=== PATIENT | female | born 1975 | race Caucasian/White ===

== ENCOUNTER → 2017-02-22 | Outpatient (REF) | LOC: WSOH 10:18 | DX: Z01.89 Encounter for other specified special examinations (principal) ==

== ENCOUNTER → 2018-05-06 | Outpatient (CLI) | payer BC | LOC: COL.LAB 13:29 | DX: R10.2 Pelvic and perineal pain (principal) ==

== ENCOUNTER → 2020-05-31 | Outpatient (CLI) | payer BC | LOC: MC.RAD 05-22 10:00 | DX: Z12.31 Encounter for screening mammogram for malignant neoplasm of breast (principal) ==

== ENCOUNTER 2021-02-18 07:09 | Day surgery (SDC) | payer BC ==
[~2021-02-18] VITALS: Ht 151.1 cm; Wt 74.9 kg
[2021-02-18] MEDS ORDERED: SINGULAIR 110 MG/TAB PO (08:24)
[2021-02-18] MEDS ORDERED: LIPITOR20 MG PO (08:25)
[2021-02-18] MEDS ORDERED: HCTZ 25MG TAB25 MG PO (08:25)
[2021-02-18] MEDS ORDERED: ATIVAN 1MG T1 MG/TAB PO (08:25)
[2021-02-18] MEDS ORDERED: LEVAQUIN 750MG750 M1 PO (08:26)
[2021-02-18] MEDS ORDERED: ONE-A-DAY ESSE1 EACH PO (08:26)
[2021-02-18 08:27] VITALS: BP 162/92; PULSE 87; TEMP 98.5
--- NOTE | 2021-02-18 08:43 | NUR ---
TO RM AT 0750- CALL LIGHT IN REACH WILL CALL FOR RIDE HOME
[2021-02-18] MEDS ORDERED: MOTRIN 600600 MG/TAB PO (11:38)
[2021-02-18] MEDS ORDERED: NORCO 325 MG-51 TAB PO (11:38)
[2021-02-18 11:40] VITALS: BP 119/64; PULSE 72; TEMP 97.7
--- NOTE | 2021-02-18 11:40 | NUR ---
TO RM 5 PER CART FROM PACU. ALERT ORIENTED X3, TALKING TO STAFF. RECEIVED PEPSI AND REFUSED ANYTHING TO EAT. DENIES NAUSEA C/O SLIGHT PAIN, BUT DENIES NEEDING PAIN MEDICATION. INCISION CLEAN DRY AND INTACT WITH SKIN ADHESIVE.
[2021-02-18 11:55] VITALS: BP 125/65; PULSE 81
--- NOTE | 2021-02-18 11:55 | NUR ---
DRANK PEPSI 100% AND AKING TO GO HOME.
--- NOTE | 2021-02-18 12:10 | NUR ---
TO BATHROOM AND VOIDED. AMBULATED BACK TO AND GOT DRESSED.
--- NOTE | 2021-02-18 12:35 | NUR ---
PATIENT STATED SHE COULDN'T BELIEVE HOW WELL SHE FEELS. RECEIVED DISCHARGE INSTRUCTIONS AND VERBALIZED UNDERSTANDING. DISCONTINUED INT.
--- NOTE | 2021-02-18 12:45 | NUR ---
DISCHARGED PER WC BY NURSING STAFF TO PRIVATE CAR IN CARE OF . PATIENT STEPPED UP INTO HEALTHCARE SCIENCE SPECIALIST TRUCK WITHOUT ANY HELP .
[2021-02-18 13:22] VITALS: BP 119/64; PULSE 76; TEMP 98.2
== END 2021-02-18 12:56 | disposition home or self-care (01) ==
LOC: SDCO 07:09
DX: L73.2 Hidradenitis suppurativa (principal); I10 Essential (primary) hypertension; G43.909 Migraine, unspecified, not intractable, without status migrainosus; F41.9 Anxiety disorder, unspecified; Z79.899 Other long term (current) drug therapy; E78.00 Pure hypercholesterolemia, unspecified; Z87.891 Personal history of nicotine dependence; Z90.89 Acquired absence of other organs; Z80.1 Family history of malignant neoplasm of trachea, bronchus and lung; Z80.52 Family history of malignant neoplasm of bladder; Z82.3 Family history of stroke; Z80.8 Family history of malignant neoplasm of other organs or systems
CPT/HCPCS: J2250; J2704; J3010; J7120

== ENCOUNTER 2022-06-19 06:52 | Day surgery (SDC) | payer BC ==
[~2022-06-19] VITALS: Ht 149.9 cm; Wt 73.5 kg
[~2022-06-19 06:52] MED LIST: ATIVAN 1MG T1 MG/TAB PO; HCTZ 25MG TAB25 MG PO; LEVAQUIN 750MG750 M1 PO; LIPITOR20 MG PO; MOTRIN 600600 MG/TAB PO; NORCO 325 MG-51 TAB PO; ONE-A-DAY ESSE1 EACH PO; SINGULAIR 110 MG/TAB PO
[2022-06-19 08:00] VITALS: BP 149/93; PULSE 82; TEMP 97.1
[2022-06-19 09:15] VITALS: BP 139/72; PULSE 78
[2022-06-19 09:30] VITALS: BP 150/91; PULSE 83
[2022-06-19 09:45] VITALS: BP 141/87; PULSE 68
[2022-06-19 10:00] VITALS: BP 159/84; PULSE 75
--- NOTE | 2022-06-19 10:25 | NUR ---
0915 Pt returns from endo procedure via cart and RN assist to [facility] [place] [facility]. Pt ambulates from cart to recliner with RN assist. Monitors on and alarms set. Call light within reach. Report received from FELICITAS Stern. Pt alert and oriented. Pt requests water. Pt denies any pain or nausea. 0925 Pt taking drink well. No complications noted. 1020 Discharge instructions given to pt. All questions answered to her satisfaction. Handed to pt are a thank you card and discharge information. 1025 Pt transferred out of the hospital via wheelchair and [place] assist, to private vehicle driven by pt's .
[2022-06-19 14:16] VITALS: BP 135/79; PULSE 82
== END 2022-06-19 10:25 | disposition home or self-care (01) ==
LOC: SDCO 06:52
DX: Z12.11 Encounter for screening for malignant neoplasm of colon (principal); K64.4 Residual hemorrhoidal skin tags; K63.89 Other specified diseases of intestine; K63.5 Polyp of colon; K51.40 Inflammatory polyps of colon without complications; K63.3 Ulcer of intestine; F17.210 Nicotine dependence, cigarettes, uncomplicated
CPT/HCPCS: J2704; J7120

== ENCOUNTER 2022-07-17 13:10 | Inpatient (IN) | payer BC ==
[~2022-07-17] VITALS: Ht 152.4 cm; Wt 73.0 kg
[2022-07-17 13:36] VITALS: BP 153/87; PULSE 90; TEMP 98.3
[2022-07-17] MEDS ORDERED: MOTRIN 600600 MG/TAB PO (15:43)
[2022-07-17] MEDS ORDERED: PERCOCET 325 MG1 TA2 PO ×2 (15:43)
[2022-07-17 20:15] VITALS: BP 144/70; PULSE 96
[2022-07-17 22:00] VITALS: BP 131/71; PULSE 79
--- NOTE | 2022-07-17 22:00 | NUR ---
Patient arrived to the floor at 2009 per stretcher with the PACU nurse, MACK MARTIN, with 5 lap sites with glue closure, head to to assessment done, tolerated her clear liquid diet, pain score of 6/10 oxycodone and tylenol given, will continue to monitor.
[2022-07-17 23:00] VITALS: BP 132/66; PULSE 83
[2022-07-18] VITALS (7 sets, daily range): BP systolic 121–159; BP diastolic 64–87; PULSE 63–77; TEMP 97.8–98.6
--- NOTE | 2022-07-18 06:40 | NUR ---
Report received, assumed care for day shift. Patient very tearful this AM stating she hasnt slept all night and just needs to sleep. Requested not to be bothered for a little while. This nurse requested that PCT postpone VS until late morning. Assessment was completed. Lap sites x5-edges well approximated-surgical glue closure. No s/s of infection noted. Tolerated a clear liquid diet last night. Left FA INT without signs of infiltration. SCDs not on as patient is independent in the room. Denies current needs except rest. Will continue to monitor.
[2022-07-18 10:08] LABS: HEMATOCRIT 40.9 % (37.0-47.0); HEMOGLOBIN 14.1 g/dl (12.5-16.0); MEAN CELL VOLUME 94 fl (80.0-100.0); MEAN CORPUSCULAR HEMOGLOBIN 32 pg (27-31); MEAN CORPUSCULAR HGB CONC 35 g/dl (33.0-37.0); MEAN PLATELET VOLUME 8.8 fl (7.4-10.4); PLATELET COUNT 257 K/mm3 (130-400); RED BLOOD COUNT 4.35 M/mm3 (4.10-5.30); REDCELL DISTRIBUTION WIDTH-CV 11.9 % (11.5-14.5)
--- NOTE | 2022-07-18 10:18 | NUR ---
SW met with patient to complete intake. Patient states that she lives [facility] with her Richard Ramey [phone]. She does not use DME, independent with ADL's, and does not utilize HH services at this time. PCP is Dr. Mcgowan in [facility] pharmacy is [facility]. Patient states that she does not have anyone appointed as DPOA/HC and does not want to appoint anyone specific at this time. Patient plans to return to her home upon DC. SW will continue to follow. DC plan: Home
--- NOTE | 2022-07-18 10:20 | NUR ---
Critical WBC count called to Dr Ford at this time.
[2022-07-18 10:27] LABS: ALBUMIN 3.6 gm/dL (3.5-5.0); BILIRUBIN,TOTAL 0.7 mg/dL (0.2-1.2); CALCIUM 9.4 mg/dL (8.4-10.2); CREATININE, serum 0.65 mg/dL (0.57-1.11); MAGNESIUM 1.6 mg/dL (1.6-2.6); PHOSPHOROUS 3.4 mg/dL (2.3-4.7); POTASSIUM 3.7 mmol/L (3.5-4.5); TOTAL PROTEIN 6.9 gm/dL (6.2-8.1)
[2022-07-18 10:51] LABS: LYMPHOCYTE 5 % (20.0-51.0); NEUTROPHILS 90 % (42.0-75.2); PLATELET ESTIMATE NORMAL (NORMAL)
--- NOTE | 2022-07-18 12:55 | NUR ---
Office Assistance offered prayer and support with patient while family was in room.
--- NOTE | 2022-07-18 13:00 | NUR ---
Patient up to ambulate in the halls. Tolerated well.
--- NOTE | 2022-07-18 15:58 | NUR ---
Up to ambulate in halls with family. Tolerated well.
--- NOTE | 2022-07-18 23:18 | NUR ---
Patient A/Ox4, VSS, NAD, reports pain at 5/10, schedule pain meds given, ambulated down the hallway by herself and tolerated it, able to voice needs, head to toe assessment, call light and personal items within reach.
--- NOTE | 2022-07-19 00:30 | NUR ---
Report received of elevated blood pressure 180s/90s. Taken at this time by this nurse with manual cuff-150s/60s. Patient states she had been talking about work with her coworker and got "worked up"
[2022-07-19 04:03] VITALS: BP 165/79; PULSE 70; TEMP 98.2
--- NOTE | 2022-07-19 06:33 | NUR ---
Patient ambulated the hallway and tolerated well, did sleep most of the night, denies the need for pain medicine at this time.
[2022-07-19 06:37] LABS: BASO % 0.2 % (0.0-2.0); EOS % 0.2 % (0.0-4.0); GRAN # 12.2 K/mm3 (1.4-6.5); GRAN % 73.9 % (42.2-75.2); HEMOGLOBIN 12.5 g/dl (12.5-16.0); LYMPH # 3.5 K/mm3 (1.2-3.4); LYMPH % 21.1 % (20.0-51.0); MEAN CELL VOLUME 96 fl (80.0-100.0); MEAN CORPUSCULAR HEMOGLOBIN 33 pg (27-31); MEAN CORPUSCULAR HGB CONC 34 g/dl (33.0-37.0); MONO # 0.7 K/mm3 (0.1-0.6); MONO % 4.1 % (1.7-9.3); PLATELET COUNT 236 K/mm3 (130-400); RED BLOOD COUNT 3.83 M/mm3 (4.10-5.30); REDCELL DISTRIBUTION WIDTH-CV 12.3 % (11.5-14.5)
[2022-07-19 06:43] LABS: HEMATOCRIT 36.9 % (37.0-47.0)
[2022-07-19 06:57] LABS: ALBUMIN 3.4 gm/dL (3.5-5.0); BILIRUBIN,TOTAL 0.7 mg/dL (0.2-1.2); CALCIUM 9.1 mg/dL (8.4-10.2); CREATININE, serum 0.64 mg/dL (0.57-1.11); POTASSIUM 3.6 mmol/L (3.5-4.5); TOTAL PROTEIN 6.5 gm/dL (6.2-8.1)
[2022-07-19 07:51] VITALS: BP 166/95; PULSE 76; TEMP 98.5
--- NOTE | 2022-07-19 08:11 | NUR ---
Up to ambulate in hallways
[2022-07-19 12:00] VITALS: BP 189/92; PULSE 74; TEMP 97.6
[2022-07-19 12:30] VITALS: BP 154/68
[2022-07-19 16:00] VITALS: BP 129/64; PULSE 78; TEMP 98
--- NOTE | 2022-07-19 17:53 | NUR ---
Patient had a good day. Ambulated in the hallway several times today. +flatus/+BM today. Received dilaudid x2 for pain and ativan x1 for anxiety. Tolerated diet. Denies current needs. [facility]. Will monitor.
[2022-07-19 20:00] VITALS: BP 135/93; PULSE 88; TEMP 98.7
[2022-07-20] VITALS (8 sets, daily range): BP systolic 126–143; BP diastolic 64–82; PULSE 84–118; TEMP 97.5–99.8
[2022-07-20 06:53] LABS: BASO % 0.2 % (0.0-2.0); EOS # 0.1 K/mm3 (0.0-0.7); EOS % 0.9 % (0.0-4.0); GRAN # 9.4 K/mm3 (1.4-6.5); GRAN % 78.1 % (42.2-75.2); HEMATOCRIT 37.4 % (37.0-47.0); HEMOGLOBIN 12.9 g/dl (12.5-16.0); LYMPH # 1.9 K/mm3 (1.2-3.4); MEAN CELL VOLUME 94 fl (80.0-100.0); MEAN CORPUSCULAR HEMOGLOBIN 33 pg (27-31); MEAN CORPUSCULAR HGB CONC 35 g/dl (33.0-37.0); MONO # 0.5 K/mm3 (0.1-0.6); MONO % 4.2 % (1.7-9.3); PLATELET COUNT 237 K/mm3 (130-400); RED BLOOD COUNT 3.96 M/mm3 (4.10-5.30); REDCELL DISTRIBUTION WIDTH-CV 12.2 % (11.5-14.5)
[2022-07-20 07:04] LABS: ALBUMIN 3.1 gm/dL (3.5-5.0); BILIRUBIN,TOTAL 1.3 mg/dL (0.2-1.2); CALCIUM 9.1 mg/dL (8.4-10.2); CREATININE, serum 0.62 mg/dL (0.57-1.11); POTASSIUM 3.5 mmol/L (3.5-4.5); TOTAL PROTEIN 6.4 gm/dL (6.2-8.1)
--- NOTE | 2022-07-20 09:06 | NUR ---
Pt doing well this morning. She has been up walking multiple times. Pt did have a little breakfast, but reported that she had diarrhea right after a couple bites. Pt does have complaints of feeling bloated, abd is distended. Pt educated on her advancing diet, but to take it slow and not to stuff herself. Pt verbalizes understanding.
--- NOTE | 2022-07-20 09:18 | NUR ---
Follow-up visit; Patient teary but thankful she is recouperating from some extensive surgery and Supervisor Residential was offering God's blessings and a thorough and rapid recovery. Supervisor Residential offered prayer and already has Marcy in her prayers.
--- NOTE | 2022-07-20 12:45 | NUR ---
Pt up walking again. Dr Ford ordered IV fluids. Went in to flush IV and pt complained of pain at the IV site. Pt stated that it has been bothering her for the past day. Pt really not wanting another IV. Notified Dr Ford, holding IV fluids for now
--- NOTE | 2022-07-20 16:30 | NUR ---
Pt had feeling like she might have had a fever, temp during vital signs was upper 99. Rechecked at this time, temp 98.1. Pt stated that she does feel better and did have covers on which she took off. No other needs at this time. Pt reported that she isn't very hungry. Educated her to not push foods
--- NOTE | 2022-07-20 18:00 | NUR ---
Pt recently started having increase feeling of nausea, more bloated, having issues with acid reflux. Pt stated that she feels like she is burping up the potatoes that she ate. Pt also continues to have liquid stool. New IV started in her left mid arm, PRN zofran given and fluids started. Educated her to slow down on eating for right now. Pt continues to get up and walk frequently. Updated Dr Drummond.
--- NOTE | 2022-07-20 19:49 | NUR ---
184 BSSR REPORT RECEIVED FROM ELIU POLK. PT RESTING IN BED NO NEW REQUESTS AT THIS TIME. 192 PT REQUESTING IV BENADRYL FOR ITCHING. 1930 RN AT BEDSIDE, HS MEDICATIONS ADMINISTERED, ASSESSMENT COMPLETE AT THIS TIME. PT IS ALERT AND ORIENTED X4, SPEECH IS CLEAR, HEART SOUNDS REGULAR PTS RASH IS LOCATED ON ARMS, NECK, BACK AND TORSO. LUNG SOUNDS CLEAR TO AUSCULTATION, ABD DRESSING IS CLEAN DRY AND INTACT, IV FLUSHES AND ABX ADMINISTERED DRESSING REINFORCED. PT DENIES PAIN AT THIS TIME. PEDAL AND RADAL PULSES 2+ NO EDEMA PRESENT, ABD ROUNDED BOWEL SOUNDS ACTIVE IN ALL QUADRENTS LAST BM TODAY 11.7 PER PATIENT. VITAL SIGNS TAKEN AND WITHIN NORMAL LIMITS, SEE CHART.
[2022-07-21 04:56] VITALS: BP 113/79; PULSE 82; TEMP 98.2
[2022-07-21 06:51] LABS: BASO % 0.3 % (0.0-2.0); EOS # 0.3 K/mm3 (0.0-0.7); EOS % 2.2 % (0.0-4.0); GRAN # 8.3 K/mm3 (1.4-6.5); GRAN % 73.6 % (42.2-75.2); HEMATOCRIT 37.7 % (37.0-47.0); HEMOGLOBIN 12.8 g/dl (12.5-16.0); LYMPH # 1.9 K/mm3 (1.2-3.4); LYMPH % 16.4 % (20.0-51.0); MEAN CELL VOLUME 96 fl (80.0-100.0); MEAN CORPUSCULAR HEMOGLOBIN 33 pg (27-31); MEAN CORPUSCULAR HGB CONC 34 g/dl (33.0-37.0); MEAN PLATELET VOLUME 9.1 fl (7.4-10.4); MONO # 0.8 K/mm3 (0.1-0.6); MONO % 6.9 % (1.7-9.3); PLATELET COUNT 252 K/mm3 (130-400); RED BLOOD COUNT 3.94 M/mm3 (4.10-5.30); REDCELL DISTRIBUTION WIDTH-CV 11.9 % (11.5-14.5)
[2022-07-21 07:10] LABS: ALBUMIN 2.8 gm/dL (3.5-5.0); BILIRUBIN,TOTAL 1.8 mg/dL (0.2-1.2); CALCIUM 8.8 mg/dL (8.4-10.2); CREATININE, serum 0.61 mg/dL (0.57-1.11); POTASSIUM 3.8 mmol/L (3.5-4.5); TOTAL PROTEIN 5.5 gm/dL (6.2-8.1)
[2022-07-21 08:00] VITALS: BP 114/49; PULSE 77; TEMP 98.2
[2022-07-21 08:16] VITALS: BP 117/56; PULSE 83
--- NOTE | 2022-07-21 09:37 | NUR ---
Pt doing much better now than she was late yesterday afternoon. Pt reports not feeling as bloated, abd does not appear as distended either. Pt reports that she had several episodes of diarrhea over night. She did eat a small amount of breakfast, did not want to become distended again. Talked with Dr Ford on the phone, gave an update. No other needs, pt up walking in the halls
--- NOTE | 2022-07-21 09:55 | NUR ---
Follow-up visit; Patient is teary this morning however states she just had a little breakfast and is hoping this is a sign that she is doing better. Policy Analyst offered encouragement and God's blessings and will continue to visit,
[2022-07-21 12:03] VITALS: BP 145/76; PULSE 86; TEMP 98.1
--- NOTE | 2022-07-21 14:19 | NUR ---
Pt continues to okay. She is slowly tolerating regular food, just only eating very small amount. Pain controlled with oral pain medication. Pt is getting up independently. Planning for CT this afternoon. Discussed her taking a shower after CT
[2022-07-21 15:58] VITALS: BP 124/76; PULSE 92; TEMP 98.2
--- NOTE | 2022-07-21 17:22 | NUR ---
Patient returned back from CT scan and requested to take a shower. Patient took a shower with no issue and scheduled meds administered.
--- NOTE | 2022-07-21 18:41 | NUR ---
Patient eating dinner, and rated pain level 6/10 upon assessment. Patient denies needs.
[2022-07-21 20:58] VITALS: BP 131/89; PULSE 83; TEMP 97.7
[2022-07-22 00:11] VITALS: BP 118/83; PULSE 80; TEMP 98.3
[2022-07-22 03:53] VITALS: BP 140/71; PULSE 74; TEMP 98.1
[2022-07-22 07:31] VITALS: BP 130/65; PULSE 80; TEMP 97.7
--- NOTE | 2022-07-22 09:00 | NUR ---
Pt doing well this morning. She is hopeful to get to go home. No lab work ordered for this morning. Called and notified Dr Ford. Order for labs put in. Pt reports having some pain, but not to bad, oral pain medication working well. No needs, pt up ambulating independently
--- NOTE | 2022-07-22 10:01 | NUR ---
Follow-up visit; Patient thanked Hide And Skin Fleshing Machine Operator for offering comfort and blessings and is now feeling well enough that she wants to go home to her and cats. Hide And Skin Fleshing Machine Operator offered God's blessings.
[2022-07-22 10:34] LABS: HEMATOCRIT 36.7 % (37.0-47.0); HEMOGLOBIN 12.8 g/dl (12.5-16.0); MEAN CELL VOLUME 92 fl (80.0-100.0); MEAN CORPUSCULAR HEMOGLOBIN 32 pg (27-31); MEAN CORPUSCULAR HGB CONC 35 g/dl (33.0-37.0); MEAN PLATELET VOLUME 8.9 fl (7.4-10.4); PLATELET COUNT 320 K/mm3 (130-400); RED BLOOD COUNT 3.99 M/mm3 (4.10-5.30); REDCELL DISTRIBUTION WIDTH-CV 11.9 % (11.5-14.5)
[2022-07-22 10:49] LABS: ALBUMIN 2.8 gm/dL (3.5-5.0); BILIRUBIN,TOTAL 0.7 mg/dL (0.2-1.2); CALCIUM 8.9 mg/dL (8.4-10.2); CREATININE, serum 0.64 mg/dL (0.57-1.11); POTASSIUM 3.6 mmol/L (3.5-4.5); TOTAL PROTEIN 6.2 gm/dL (6.2-8.1)
[2022-07-22 11:25] LABS: BILIRUBIN,DIRECT 0.4 mg/dL (0.0-0.5)
[2022-07-22] MEDS ORDERED: DILAUDID 2MG TAB2 MG PO (12:02)
[2022-07-22] MEDS ORDERED: NEURONTIN100 MG/CAP PO (12:05)
--- NOTE | 2022-07-22 13:35 | NUR ---
Reviewed discharge instructions with pt and her . Discussed pain medication as well. INT removed and pt escorted out
== END 2022-07-22 13:37 | disposition home or self-care (01) | DRG 330 ==
LOC: SDCO 13:10 → SURG 22:29 → SDCO 22:30 → SURG 22:31 → SDCO 07-19 22:29 → SURG 07-22 13:37
PROVIDERS: ADMIT Surgery
PROC: 8E0W4CZ Robotic Assisted Procedure of Trunk Region, Percutaneous Endoscopic Approach (ICD-10-PCS; 2022-07-17)
PROC: 0DBH4ZZ Excision of Cecum, Percutaneous Endoscopic Approach (ICD-10-PCS; principal; 2022-07-17 15:45)
DX: K56.1 Intussusception (principal); K91.89 Other postprocedural complications and disorders of digestive system; K38.8 Other specified diseases of appendix; K56.7 Ileus, unspecified; D72.829 Elevated white blood cell count, unspecified; I10 Essential (primary) hypertension; E78.5 Hyperlipidemia, unspecified; F10.90 Alcohol use, unspecified, uncomplicated; F41.9 Anxiety disorder, unspecified; Z88.1 Allergy status to other antibiotic agents; Z88.0 Allergy status to penicillin; Z88.8 Allergy status to other drugs, medicaments and biological substances; Z90.89 Acquired absence of other organs; Z91.048 Other nonmedicinal substance allergy status; Z23 Encounter for immunization
CPT/HCPCS: A9284; G0378; J0690; J1100; J1170; J1650; J1885; J2405; J2704; J3010; J7120; Q9967